=== PATIENT | male | born 1965 | race Caucasian/White ===

== ENCOUNTER → 2022-01-09 | Emergency (ER) | payer OTHER ==
[~2022-01-09] VITALS: Ht 167.6 cm; Wt 97.5 kg
[~2022-01-09] MED LIST: ALBUTEROL0.63 MG/3; ZESTRIL5 MG
== END | disposition left against medical advice (07) ==
LOC: ER 08:51
DX: J45.909 Unspecified asthma, uncomplicated (principal); I10 Essential (primary) hypertension; Z20.822 Contact with and (suspected) exposure to COVID-19